=== PATIENT | male | born 1970 | race Caucasian/White ===

== ENCOUNTER 2017-05-26 16:43 | Emergency (ER) | payer OTHER ==
[~2017-05-26] VITALS: Ht 175.3 cm; Wt 86.2 kg
[2017-05-26 16:50] VITALS: BP 115/79
== END 2017-05-26 17:57 | disposition left against medical advice (07) ==
LOC: ER 16:48
DX: R53.1 Weakness (principal); Z53.21 Procedure and treatment not carried out due to patient leaving prior to being seen by health care provider
CPT/HCPCS: 93005